=== PATIENT | female | born 1975 | race Caucasian/White ===

== ENCOUNTER 2022-07-06 00:31 | Emergency (ER) | payer OTHER, SELFPAY ==
--- NOTE | 2022-07-06 00:35 | EKG12_ITS ---
Test Reason : CP Blood Pressure : / mmHG Vent. Rate : 094 BPM Atrial Rate : 094 BPM P-R Int : 152 ms QRS Dur : 096 ms QT Int : 358 ms P-R-T Axes : 040 020 030 degrees QTc Int : 447 ms Normal sinus rhythm Normal ECG Confirmed by LARA BERG, DAMARIS ([id number]), editor magazine [employer] ([id number]) on 07/07/2022 12:51:11 PM Referred By: NELLA Confirmed By:DAMARIS BERMUDEZ MD
[2022-07-06 00:36] VITALS: BP 159/112; PULSE 116; RESP 18; TEMP 36.7; O2SAT 95; BMI 27.4
--- NOTE | 2022-07-06 00:40 | ED.RN ---
pt requesting troponin only for plan of care, ED Physician ok with plan.
[2022-07-06 01:13] LABS: Troponin-I HS 44 pg/mL (3.0-54.0)
--- NOTE | 2022-07-06 01:45 | ED.VIS.CHEST ---
HPI History of Present Illness Chief Complaint: Chest Pain Informant: patient Onset/Context/Timing Onset: Hours Activity at onset: gradual Timing: Waxes and wanes Quality: Positive for Pain Location: Substernal Current Severity: Moderate Maximum Severity: Moderate Narrative Narrative: Patient presents with several hour history of midsternal chest pain. She reports only minimal if any shortness of breath. Pain is not pleuritic. No PE risk factors. Patient does not feel that she is having reflux. PFSH PFSH Medical History Hypothyroidism Medical History no medical history Social History Smoking Status: Never smoker ROS ROS ED Constitutional Constitutional ED: Denies chills or fever(s) Eyes Eyes: Denies change in vision or discharge from eye(s) ENT ENT ED: Denies discharge from eye(s), rhinorrhea or sore throat Cardiovascular Cardiovascular: Reports chest pain; Denies palpitations Respiratory/Chest Respiratory/Chest: Reports dyspnea; Denies cough Gastrointestinal Gastrointestinal: Denies abdominal pain, diarrhea, nausea or vomiting Genitourinary Genitourinary ED: Denies dysuria Musculoskeletal Musculoskeletal: Denies back pain or extremity pain Integumentary Denies Abrasions or rash Neurologic Neurologic: Denies headache(s) or weakness Allergic/Immunologic Allergic/Immunologic ED: Denies lip swelling or urticaria EXAM Physical Exam Const Vital Signs: 07/06/22 00:36 Temperature 98.1 F Temperature Source Temporal Pulse Rate 116 H Respiratory Rate 18 Blood Pressure 159/112 H Blood Pressure Mean 127 Pulse Ox 95 Oxygen Delivery Method Room Air Positive well nourished and well developed General Appearance ED: well developed HEENT Reports normocephalic and head/scalp atraumatic Eyes PERRL and EOMs intact bilaterally Neck supple Chest Wall inspection of chest normal and palpation of chest normal Resp normal respiratory effort and clear to auscultation bilaterally Cardio regular rate and regular rhythm GI normal to inspection, nondistended, normoactive bowel sounds Palpation: soft Extremity normal to inspection Neuro oriented x3 and no sensory deficits noted Sensorium / Orientation: alert Motor Exam: strength 5/5 throughout Psych mental status grossly normal Skin no rashes or lesions noted Heart Score History: Slightly/Non-Suspicious ECG: Normal Age: >45 - <65 years Risk Factors: No Risk Factors Troponin: </= Normal Limit Score: 1 MDM MDM MDM Narrative Medical decision making narrative: Single troponin drawn as patient has had more than 6 hours of pain. EKG obtained. Lab Data Labs: Laboratory Results - last 24 hr 07/06/22 00:45 Troponin I High Sens 44 EKG Initial EKG: Attestation: I personally reviewed and interpreted this EKG as follows: Interpretation: Sinus Rhythm (Sinus at 94 with no acute ischemia.) Treatment and Re-Evaluation Narrative: EKG reveals no acute ischemia. Troponin is normal at 44. Patient is reassured with these findings. Return instructions given. Patient voices understanding and agreement. Discharge Plan Triage Chief Complaint: Chest Pain ED Provider: Lorene Faith Dx/Rx/DC Orders Clinical Impression: Chest pain Primary Care Provider: Care Physician,No Primary Referrals: Care Physician,No Primary [Primary Care Provider] - Disposition Disposition: Home, Self Care Discharge Date/Time: 07/06/22 01:46
== END 2022-07-06 01:46 | disposition home or self-care (01) ==
PROVIDERS: Emergency Provider Emergency Medicine; Visit Provider Emergency Medicine
DX: R07.9 Chest pain, unspecified (principal); R06.00 Dyspnea, unspecified
CPT/HCPCS: 84484; 93005; 99282